=== PATIENT | male | born 1985 | race Caucasian/White ===

== ENCOUNTER 2020-07-25 10:21 | Emergency (ER) | payer MEDICAID ==
[~2020-07-25] VITALS: Ht 165.1 cm; Wt 66.0 kg
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
[2020-07-25] MEDS ORDERED: LORazepam 2 MG/ML, 1ML ONE (10:41)
[2020-07-25] MEDS ORDERED: HALOPERIDOL 5 MG/ML ONE (10:41)
--- NOTE | 2020-07-25 10:52 | NUR ---
PT MEDICATED PER EMAR FOR AGITATION. PT CALLING THIS RN A "BITCH" AND BANGING ON GURNEY. PT CONTINUES TO WRESTLE WITH RESTRAINTS. WILL CONTINUE TO MONITOR.
[2020-07-25] MEDS ORDERED: LORazepam 2 MG/ML, 1ML IM ONE (11:00)
[2020-07-25] MEDS ORDERED: DIPH,PERTUSS(ACELL),TET VAC/PF 0.5 ML IM-VACC ONE ×2 (11:00→13:15)
[2020-07-25] MEDS ORDERED: L.E.T SOLUTION TP ONE (11:00)
[2020-07-25] MEDS ORDERED: HALOPERIDOL 5 MG/ML IM ONE (11:00)
[2020-07-25] MEDS ORDERED: LIDOCAINE-MPF 1%, 5ML INFIL ONE (11:00)
--- NOTE | 2020-07-25 11:14 | NUR ---
PT STARTING TO CALM DOWN. ABLE TO PLACE MASK AND GET SET OF VITALS. WILL CONTINUE TO MONITOR Addendum: 07/25/20 at 1117 by OMARTIN PT PLACED ON 3L O2, AND SAT UP IN [facility]. PT SATING 89% ON RA.
--- NOTE | 2020-07-25 11:18 | NUR ---
PT NOW IN 2 POINT RESTRAINT. ABLE TO GET VITALS
--- NOTE | 2020-07-25 11:27 | NUR ---
PT TO CT
--- NOTE | 2020-07-25 11:43 | NUR ---
PT 4 POINT RESTRAINTS REMOVED FOR CT. PT RESTING CALMLY IN BED AT THIS TIME. PT O2 TURNED DOWN TO 2L. TECH IN NOW TO CLEAN PT FACE WOUND
[2020-07-25 12:16] LABS: BASOPHILS % (AUTO) 0 % (0-1); EOSINOPHILS % (AUTO) 2 % (1-7); LYMPHOCYTES % (AUTO) 23 % (22-44); MD NO; MEAN CORPUSCULAR HEMOGLOBIN 34.1 pg (27.5-34.5); MEAN CORPUSCULAR HGB CONC 34.4 g/dL (33.2-36.2); MEAN PLATELET VOLUME 7.6 fL (7.4-10.4); MONOCYTES % (AUTO) 7 % (2-9); NEUTROPHILS % (AUTO) 68 % (42-75); PLATELET COUNT 238 x10^3/uL (130-400); RED BLOOD COUNT 5.37 x10^6/uL (4.38-5.82)
[2020-07-25] MEDS ORDERED: SODIUM CHLORIDE 0.9% 1,000ML IVBOLUS ONE ×2 (12:30→15:00)
[2020-07-25] MEDS ORDERED: SODIUM CHLORIDE FLUSH 10ML SYR IVF ONE (12:30)
[2020-07-25] MEDS ORDERED: NEOSPORIN OINT. PKT 1 PACKET ONE (12:35)
--- NOTE | 2020-07-25 12:40 | NUR ---
PT RIGHT EYEBROW LAC REPAIRED. PT COOPERATIVE THROUGH REPAIR. PT BP HAS LOWERED, ERP AWARE. IV STARTED AND FLUIDS GIVEN. PT IS RESPONSIVE TO PAINFUL STIMULI, GOES BACK TO SLEEP QUICKLY. WILL CONTINUE TO MONITOR. PT GIVEN ANOTHER BLANKET FOR COMFORT.
[2020-07-25 12:44] LABS: ALANINE AMINOTRANSFERASE 64 U/L (12-78); ALBUMIN 3.8 g/dL (3.4-5.0); ANION GAP 8 mmol/L (5-15); CALCIUM 8.2 mg/dL (8.5-10.1); CHLORIDE 116 mmol/L (98-107); SALICYLATE LEVEL 4.9 mg/dL (2.8-20.0)
[2020-07-25 12:47] LABS: ALKALINE PHOSPHATASE 92 U/L (45-117); BILIRUBIN,TOTAL 0.3 mg/dL (0.2-1.0)
--- NOTE | 2020-07-25 13:32 | NUR ---
PT IS RESTING CALMLY IN BED GURNEY WITH EYES CLOSED. PT AROUSALBE TO PAINFUL STIMULI, STILL FALLS ASLEEP QUICKLY. WILL CONTINUE TO MONITOR.
--- NOTE | 2020-07-25 14:38 | NUR ---
Dr. Melara aware of patients low BP, second bag of NS hung. Pt on monitor, resting comfortably.
--- NOTE | 2020-07-25 16:33 | NUR ---
[facility] ATTEMPTING TO AMBULATE PT NOW. PT BP HAS IMPROVED. SEE CHARTED.
--- NOTE | 2020-07-25 16:44 | NUR ---
PT AROUSABLE ON OWN AT THIS TIME. PT ABLE TO FOLLOW DIRECTIONS. PT ABLE TO AMBULATE 5FT. PT C/O SEVERE PAIN IN RIGHT FOOT AND ANKLE, THERE IS MINIMAL SWELLING NOTED. ERP AWARE.
--- NOTE | 2020-07-25 17:17 | NUR ---
Dr. borjas and myself at bedside. Pt states that his ankle has been hurting since last week.
[2020-07-25 17:58] VITALS: BP 99/68
== END 2020-07-25 18:14 | disposition home or self-care (01) ==
LOC: ED 18:12
DX: S82.51XA Displaced fracture of medial malleolus of right tibia, initial encounter for closed fracture (principal); S01.81XA Laceration without foreign body of other part of head, initial encounter; F10.221 Alcohol dependence with intoxication delirium; R41.0 Disorientation, unspecified; Y90.0 Blood alcohol level of less than 20 mg/100 ml; X58.XXXA Exposure to other specified factors, initial encounter; Y93.89 Activity, other specified; Y92.89 Other specified places as the place of occurrence of the external cause; Y99.8 Other external cause status
CPT/HCPCS: 12011; 36415; 70450; 73610; 80053; 80299; 80320; 80329; 85025; 90471; 90715; 96360; 96361; 96372; 99285; J1630; J2060; J7030; G0480